=== PATIENT | female | born 1990 | race Asian ===

== ENCOUNTER 2020-12-26 15:35 | Outpatient (CLI) | payer OTHER | END 2020-12-26 15:36 | disposition home or self-care (01) | LOC: BICULT 15:35 | PROVIDERS: ATTEND Nurse Practitioner Women's Health | DX: Z34.82 Encounter for supervision of other normal pregnancy, second trimester (principal); O44.42 Low lying placenta NOS or without hemorrhage, second trimester; Z3A.22 22 weeks gestation of pregnancy; O32.2XX0 Maternal care for transverse and oblique lie, not applicable or unspecified | CPT/HCPCS: 76805 ==